=== PATIENT | female | born 1950 ===

== ENCOUNTER 2021-11-11 07:15 | Inpatient (IN) | payer OTHER ==
[~2021-11-11] VITALS: Ht 154.9 cm; Wt 68.9 kg
[2021-11-11] MEDS ORDERED: NAMENDA10 MG PO (09:05)
[2021-11-11] MEDS ORDERED: ARICEPT10 MG PO (09:05)
[2021-11-11] MEDS ORDERED: SYNTHROID100 MCG PO (09:05)
[2021-11-11] MEDS ORDERED: LIPITOR40 M1 PO (09:05)
[2021-11-11] MEDS ORDERED: ADULT LOW DOSE81 M1 PO (09:06)
[2021-11-11] MEDS ORDERED: ZESTRIL40 M1 PO (09:12)
== END 2021-11-15 14:31 | disposition home or self-care (01) | DRG 740 ==
LOC: OB/GYN 11-13 06:20 → O/R 11-13 06:20 → SURG 11-13 07:00 → OB/GYN 11-13 10:40
PROVIDERS: ADMIT Specialist; ATTEND Specialist
PROC: 0UT70ZZ Resection of Bilateral Fallopian Tubes, Open Approach (ICD-10-PCS; 2021-11-13)
PROC: 0UT20ZZ Resection of Bilateral Ovaries, Open Approach (ICD-10-PCS; 2021-11-13)
PROC: 07BC0ZZ Excision of Pelvis Lymphatic, Open Approach (ICD-10-PCS; 2021-11-13)
PROC: 0DNW0ZZ Release Peritoneum, Open Approach (ICD-10-PCS; 2021-11-13)
PROC: 0TN70ZZ Release Left Ureter, Open Approach (ICD-10-PCS; 2021-11-13)
PROC: 0TN60ZZ Release Right Ureter, Open Approach (ICD-10-PCS; 2021-11-13)
PROC: 0DBU0ZZ Excision of Omentum, Open Approach (ICD-10-PCS; 2021-11-13)
PROC: 3E1M38Z Irrigation of Peritoneal Cavity using Irrigating Substance, Percutaneous Approach (ICD-10-PCS; 2021-11-13)
PROC: 0UT90ZL Resection of Uterus, Supracervical, Open Approach (ICD-10-PCS; principal; 2021-11-13 07:00)
DX: C54.1 Malignant neoplasm of endometrium (principal); C79.63 Secondary malignant neoplasm of bilateral ovaries; C79.82 Secondary malignant neoplasm of genital organs; C77.5 Secondary and unspecified malignant neoplasm of intrapelvic lymph nodes; Z20.822 Contact with and (suspected) exposure to COVID-19